=== PATIENT | female | born 1945 | race Caucasian/White ===

== ENCOUNTER 2017-05-07 12:38 | Day surgery (SDC) | payer MEDICARE, OTHER ==
--- NOTE | 2017-05-06 14:45 | Pre-Procedure Note/Attestation ---
Pre-Procedure Note/Attestation Complete Prior to Procedure Planned Procedure: left Procedure Narrative: Left shoulder open reduction and internal fixation of proximal humerus fracture Indications for Procedure Pre-Operative Diagnosis: Left shoulder proximal humerus fracture Attestation I attest that I discussed the nature of the procedure; its benefits; risks and complications; and alternatives (and the risks and benefits of such alternatives ), prior to the procedure, with the patient (or the patient's legal sales solutions representative). I attest that, if there was a reasonable possibility of needing a blood transfusion, the patient (or the patient's legal sales solutions representative) was given the [facility] standardized written summary, pursuant to the Julio Cesar Briseyda Blood Safety Act ([place] Health and Safety Code # 1645, as amended). I attest that I re-evaluated the patient just prior to the surgery and that there has been no change in the patient's H&P, except as documented below: NONE LATONYA IVY May 06, 2017 14:45
[2017-05-07] VITALS (12 sets, daily range): BP systolic 72–109; BP diastolic 37–63
[~2017-05-07] VITALS: Ht 170.2 cm; Wt 75.7 kg
[~2017-05-07 12:38] MED LIST: ceFAZolin 1gm in D5W 55ml IVP ONE; celeBREX 200mg Cap **SURGERY PATIENTS ONLY ORAL ONE; oxyCONTIN 20mg tab ORAL ONE
[2017-05-07] MEDS ORDERED: Propofol 10mg/ml 20ml IV ONE (13:15)
[2017-05-07] MEDS ORDERED: Ropivacaine 5mg/ml Vial 20ml INJ ONE ×3 (13:16→16:58)
[2017-05-07] MEDS ORDERED: LISINOPRIL10 MG ORAL (13:44)
[2017-05-07] MEDS ORDERED: METOPROLOL SUCC25 MG ORAL (13:44)
[2017-05-07] MEDS ORDERED: ASPIR 8181 MG ORAL (13:45)
[2017-05-07] MEDS ORDERED: NITROFURANTOIN100 M2 ORAL (13:45)
[2017-05-07] MEDS ORDERED: VITAMIN D1000 UNI1 ORAL (13:45)
[2017-05-07] MEDS ORDERED: LIPITOR80 MG ORAL (13:45)
[2017-05-07] MEDS ORDERED: PROBIOTIC1 EAC5 PO (13:45)
[2017-05-07] MEDS ORDERED: LR 1000ml 1,000 ML IVLG SCH (14:05)
--- NOTE | 2017-05-07 14:08 | Anethesia Preoperative Eval ---
Anesthesia Pre-op PMH/ROS General Date of Evaluation: May 07, 2017 Anesthesiologist: Marine ASA Score: ASA 3 Mallampati Score Class I : Soft palate, uvula, fauces, pillars visible Class II: Soft palate, uvula, fauces visible Class III: Soft palate, base of uvula visible Class IV: Only hard plate visible Mallampati Classification: Class II Surgeon: Marco Diagnosis: L Humerous Fx Surgical Procedure: ORIF L Humerous Anesthesia History: none Family History: no anesthesia problems Allergies: Coded Allergies: AMPICILLIN (Verified Allergy, Severe, 05/07/17) hives CEFACLOR (Verified Allergy, Severe, 05/07/17) hives CIPROFLOXACIN (Verified Allergy, Unknown, 05/06/17) PENICILLIN V (Verified Allergy, Unknown, 05/06/17) SULFAMETHOXAZOLE (Verified Allergy, Unknown, 05/06/17) TETANUS VACCINES AND TOXOID (Verified Allergy, Unknown, 05/07/17) PT DOES NOT REMEMBER REACTION TRIMETHOPRIM (Verified Allergy, Unknown, 05/06/17) Uncoded Allergies: ANTI-INFLAMMATORIES (Allergy, Severe, 05/07/17) ELEVATED BLOOD PRESSURE Medications: see eMAR Past Medical History Cardiovascular: Reports: CAD - LAD and R circumflex Blockage, HTN HEENT: Reports: cataract (L), cataract (R) PSxH Narrative: R, L Knee SX, Renal Stone Removal, Angiogram, B Cat Ext IOL Anesthesia Pre-op Phys. Exam Physician Exam Last Vital Signs Date Time Temp Pulse Resp B/P Pulse Ox O2 Delivery O2 Flow Rate FiO2 05/07/17 13:30 97.9 73 20 102/63 97 Room Air Constitutional: NAD Neurologic: CN 2-12 intact Cardiovascular: RRR Respiratory: CTA Gastrointestinal: S/NT/ND Airway Exam Mallampati Score: Class II MO: limited ROM: limited Teeth: intact Anesthesia Pre-op A/P Risk Assessment & Plan Assessment: ASA 3 Plan: GA, BIS, L Supraclavicular Block Status Change Before Surgery: No Pre-Antibiotics Dru Grams Ancef IV Given Within 1 Hr of Incision: Yes Time Given: 15:26 Contreras Hawthorne MD May 07, 2017 14:08
[2017-05-07] MEDS ORDERED: Norco 7.5mg/325mg tab ORAL PRN (14:15)
[2017-05-07] MEDS ORDERED: DiphenhydrAMINE 50mg/ml Inj IVP PRN (14:15)
[2017-05-07] MEDS ORDERED: fentaNYL 100 mcg/2 mL IV PRN (14:15)
[2017-05-07] MEDS ORDERED: Midazolam 2mg/2ml Inj IVP PRN (14:15)
[2017-05-07] MEDS ORDERED: Ketorolac 60mg Inj IV PRN (14:15)
[2017-05-07] MEDS ORDERED: Norco 5mg/325mg tab ORAL PRN ×2 (14:15→20:01)
[2017-05-07] MEDS ORDERED: Hydromorphone 0.5mg/0.5ml inj IVP PRN (14:15)
[2017-05-07] MEDS ORDERED: Metoclopramide 10mg/2ml Inj IVP PRN (14:15)
[2017-05-07] MEDS ORDERED: LORazepam Inj 2mg/ml 1ml IV PRN (14:15)
[2017-05-07] MEDS ORDERED: Atropine Inj 1mg/10ml Syr IV PRN (14:15)
[2017-05-07] MEDS ORDERED: Ketorolac 30mg Inj IV PRN (14:15)
[2017-05-07] MEDS ORDERED: MEPERIDINE IV PRN (14:15)
[2017-05-07] MEDS ORDERED: oxyCODONE HCL/Acetaminophen 5/325mg ORAL PRN (14:15)
[2017-05-07] MEDS ORDERED: Lidocaine 1% MPF 10mg/ml 5ml ONE (15:00)
[2017-05-07] MEDS ORDERED: NS Irrig 1000ml ONE (15:00)
[2017-05-07] MEDS ORDERED: Midazolam 2mg/2ml Inj ONE (15:00)
[2017-05-07] MEDS ORDERED: fentaNYL 100 mcg/2 mL IV ONE (15:00)
[2017-05-07] MEDS ORDERED: LR 1000ml ONE (15:00)
[2017-05-07] MEDS ORDERED: Dexamethasone 4mg/ml vial ONE (15:00)
[2017-05-07] MEDS ORDERED: Bacitracin 50000 Units Vial ONE (15:01)
[2017-05-07] MEDS ORDERED: Bupivacaine w/Epi 0.5% 30ml Vial INJ ONE (15:01)
--- NOTE | 2017-05-07 16:13 | Immediate Post-Op Evaluation ---
Immediate Post-Op Evalulation Immediate Post-Op Evalulation Procedure: ORIF L Humerous Date of Evaluation: May 07, 2017 Time of Evaluation: 17:13 IV Fluids: 1100 LR Blood Products: 0 Estimated Blood Loss: 25 Urinary Output: 0 Blood Pressure Systolic: 87 Blood Pressure Diastolic: 48 Pulse Rate: 80 Respiratory Rate: 16 O2 Sat by Pulse Oximetry: 99 Temperature (Fahrenheit): 98.4 Pain Score (1-10): 1 Nausea: No Vomiting: No Complications 0 Patient Status: awake, reacts, patent, extubated, none Hydration Status: adequate Dru Grams Ancef IV Given Within 1 Hr of Incision: Yes Time Given: 15:26 Contreras Hawthorne MD May 07, 2017 16:13
--- NOTE | 2017-05-07 16:14 | 48 Hour Post Anesthesia Eval ---
Post Anesthesia Evaluation Procedure: ORIF L Humerous Date of Evaluation: May 07, 2017 Time of Evaluation: 19:23 Blood Pressure Systolic: 112 0: 78 Pulse Rate: 75 Respiratory Rate: 18 Temperature (Fahrenheit): 98.4 O2 Sat by Pulse Oximetry: 97 Airway: patent Nausea: No Vomiting: No Pain Intensity: 1 Hydration Status: adequate Cardiopulmonary Status: Stable Mental Status/LOC: patient returned to baseline Follow-up Care/Observations: 0 Post-Anesthesia Complications: 0 Follow-up care needed: ready to discharge Contreras Hawthorne MD May 07, 2017 16:14
--- NOTE | 2017-05-07 16:40 | Brief Operative Note ---
Immediate Post Operative Note Operative Note Pre-op Diagnosis: Left shoulder proximal humerus fracture Procedure: Left shoulder greater tuberosity ORIF with multiple fiber wire sutures Post-op Diagnosis: same as pre-op Surgeon: sanjuanita Varnish Cooker: Arron Anesthesiologist: Marine Anesthesia: general Specimen: none Complications: none Condition: stable Estimated Blood Loss: volume - 150cc Drains: none Implant(s) used?: LATONYA Hollins May 07, 2017 16:40
[2017-05-07] MEDS ORDERED: NS Irrig 1000ml IRRIG ONE (16:58)
[2017-05-07] MEDS ORDERED: HYDROmorphone 1mg/ml Carpuject SUBQ PRN (20:01)
[2017-05-07] MEDS ORDERED: Tylenol #3 tab (300mg/30mg) ORAL PRN (20:01)
[2017-05-07] MEDS ORDERED: D5 1/2NS 1,000 ML IV SCH (20:01)
--- NOTE | 2017-05-08 10:30 | Operative Note - Dictated ---
DATE OF OPERATION: 05/07/2017 PREOPERATIVE DIAGNOSIS: Left shoulder displaced greater tuberosity fracture with some metaphyseal extension. POSTOPERATIVE DIAGNOSIS: Left shoulder displaced greater tuberosity fracture with some metaphyseal extension. PROCEDURE: Left shoulder open reduction and internal fixation of the greater tuberosity fracture with multiple #2 FiberWire stitches without placement of metallic hardware. SURGEON: Jose Lara M.D. PARTS IDENTIFIER: Stoney Mao ANESTHESIOLOGIST: Contreras Hawthorne M.D. ANESTHESIA: LMA anesthesia combined with interscalene block. EBL: Less than 50 mL. COMPLICATIONS: None. BRIEF HISTORY: The patient is a pleasant 72-year-old female who sustained a fall and had left-sided greater tuberosity fracture. The tuberosity fracture was displaced, CT scan confirmed this. After full discussion of risks and benefits of the surgery and complications associated with it, including infection, bleeding, neurovascular complication, possibility of malunion, possibility of nonunion, possible need for further surgery, possible need for plates and screws, and other complications that may arise, she opted for surgical treatment as described above. OPERATIVE PROCEDURE: The patient was brought to the operating room table and was placed supine. All pressure points were well padded. General LMA anesthesia was induced and an interscalene block was performed. The left arm was prepped and draped in the usual sterile fashion. The patient was positioned in a beach chair position with all pressure points well padded. A standard deltopectoral incision was made and the vein was preserved medially. The incision was taken through the subcutaneous tissue. Deltopectoral interval was identified and developed and conjoined tendon was identified. Retractors were placed underneath the conjoined tendon and underneath the deltoid. The hematoma was evacuated and the wounds were irrigated. The tuberosity fracture was then identified, which was displaced posteriorly and superiorly. At this point, the tuberosity fracture was then brought down and was reduced back in its original position. The size of the tuberosity fracture was small and plating was not a viable option. Therefore, at this point, multiple #2 FiberWire sutures, total of 6 sutures were placed in the tuberosity in a [id number] position to hold the tuberosity fracture together. This reduced the fracture anatomically in excellent position. Wounds were thoroughly irrigated. Image was brought in and position of the tuberosity was checked and rechecked in AP and lateral and axillary view, and appeared to be perfect. At this point, all wounds were thoroughly irrigated using copious amount of fluid. The entire tuberosity appeared to be intact and reduced back onto the fracture and the fracture was reduced anatomically. At this point, wounds were thoroughly irrigated using copious amount of fluid. The deltopectoral incision was closed using #1 Vicryl suture. Subcutaneous tissue was closed using 2-0 Vicryl suture. The skin was closed using 3-0 Monocryl suture. A sling was applied and the patient was taken to recovery room in stable condition. All lap counts and instrument counts were correct. Jose Lara M.D. DR: ALPESH JOB#: [id number] CC:
--- NOTE | 2017-05-08 14:40 | Diagnostic Imaging Report ---
Indication: Greater tuberosity fracture Technique: Intraoperative images Comparison: None Findings: Intraoperative images document surgical reduction of greater tuberosity fracture. Impression: Intraoperative imaging, as described
== END 2017-05-07 19:15 | disposition home or self-care (01) ==
LOC: SUR 12:38
DX: S42.252A Displaced fracture of greater tuberosity of left humerus, initial encounter for closed fracture (principal); X58.XXXA Exposure to other specified factors, initial encounter; Y92.89 Other specified places as the place of occurrence of the external cause; Y99.9 Unspecified external cause status; I25.10 Atherosclerotic heart disease of native coronary artery without angina pectoris; I10 Essential (primary) hypertension; Z88.3 Allergy status to other anti-infective agents; Z88.1 Allergy status to other antibiotic agents; Z88.0 Allergy status to penicillin; Z88.2 Allergy status to sulfonamides; Z88.8 Allergy status to other drugs, medicaments and biological substances; Z88.7 Allergy status to serum and vaccine
CPT/HCPCS: 23630; 73030; 76001; J0690; J1100; J2250; J2405; J2704; J2795; J3010; J7120; 94003; 94150